=== PATIENT | male | born 1975 | race Two or more races ===

== ENCOUNTER 2020-06-28 04:43 | Emergency (ER) | payer MEDICAID ==
[~2020-06-28] VITALS: Ht 182.9 cm; Wt 127.0 kg
[2020-06-28 05:40] LABS: BASOPHILS % 0.7 % (0.0-2.0); EOSINOPHILS % 2.3 % (0.0-5.0); HEMATOCRIT. 42.3 % (42.0-52.0); HEMOGLOBIN. 14.4 g/dL (14.0-18.0); LYMPHOCYTES % 24.7 % (20.0-50.0); MEAN CORPUSCULAR HEMOGLOBIN 28.4 pg (28.0-32.0); MEAN CORPUSCULAR VOLUME 83.1 fL (80.0-94.0); MEAN PLATELET VOLUME 8.2 fl (7.4-10.4); MONOCYTES % 8.6 % (2.0-8.0); NEUTROPHILS % 63.7 % (40.0-76.0); PLATELET 249 x1000/uL (130-400); RED BLOOD CELL COUNT 5.09 mill/uL (4.7-6.1)
[2020-06-28 05:46] LABS: CHLORIDE 109 mEq/L (98-107)
[2020-06-28] MEDS ORDERED: KETOROLAC 15MG/ML VIAL IV ONE (06:45)
[2020-06-28] MEDS ORDERED: CYCLOBENZAPRINE 10MG TABLET PO ONE (06:45)
[2020-06-28 06:55] VITALS: BP 143/88
== END 2020-06-28 07:57 | disposition home or self-care (01) ==
LOC: ER 04:43
DX: R07.89 Other chest pain (principal); M79.622 Pain in left upper arm
CPT/HCPCS: 36415; 71045; 80053; 83880; 84484; 85025; 93005; 96374; 99285; J1885